=== PATIENT | female | born 1975 | race Caucasian/White ===

== ENCOUNTER 2018-05-22 07:05 | Emergency (ER) | payer MEDICAID ==
[~2018-05-22] VITALS: Ht 175.3 cm; Wt 145.2 kg
[2018-05-22] MEDS ORDERED: VENTOLIN HFA18 GM (07:17)
[2018-05-22] MEDS ORDERED: HYDROCHLOROTHIA25 MG PO ×2 (07:17→10:18)
--- NOTE | 2018-05-23 18:39 | EKG ---
[facility] [address] [place] [address] Signed Normal sinus rhythm Normal ECG No previous ECGs available Confirmed by KASHIF REHMAN MD ([id number]) on 05/23/2018 6:39:08 PM Electronically Signed By: KASHIF REHMAN MD 05/23/18 1839 PATIENT NAME: KALLI GUZMAN Electrocardiogram DATE OF : 73 PHYSICIAN: KASHIF REHMAN MD REPORT #: [id number] REPORT IS CONFIDENTIAL AND NOT TO BE RELEASED WITHOUT AUTHORIZATION
--- NOTE | 2018-05-23 18:39 | EKG ---
[facility] [address] [place], [place] [address] Signed Normal sinus rhythm Normal ECG When compared with ECG of 22-MAY-2018 07:08, (Unconfirmed) No significant change was found Confirmed by KASHIF REHMAN MD ([id number]) on 05/23/2018 6:39:15 PM Electronically Signed By: KASHIF REHMAN MD 05/23/18 1839 PATIENT NAME: YAW GUZMANMONCHO LAGUNASE Electrocardiogram DATE OF : 73 PHYSICIAN: KASHIF REHMAN MD REPORT #: [id number] REPORT IS CONFIDENTIAL AND NOT TO BE RELEASED WITHOUT AUTHORIZATION
== END 2018-05-22 10:31 | disposition home or self-care (01) ==
LOC: ED 07:05
DX: K21.9 Gastro-esophageal reflux disease without esophagitis (principal); I10 Essential (primary) hypertension; F17.200 Nicotine dependence, unspecified, uncomplicated; Z88.0 Allergy status to penicillin; Z79.899 Other long term (current) drug therapy
CPT/HCPCS: 71046; 80053; 84484; 85025; 93005; 93010; 99285

== ENCOUNTER 2019-07-12 11:56 | Emergency (ER) | payer SELFPAY ==
[~2019-07-12] VITALS: Ht 175.3 cm; Wt 129.7 kg
[~2019-07-12 11:56] MED LIST: HYDROCHLOROTHIA25 MG PO; VENTOLIN HFA18 GM
--- OUTSIDE RECORDS SUMMARY | 2019-07-12 12:00 | XMS ---
PreManage Notification: KALLI GUZMAN [employer] Events No recent Security Events currently on file CRITERIA MET - Group Notification - [facility] - Has Care Guidelines CARE PROVIDERS HAKEEM JOHNSON [facility] Current PHONE: Unknown Care Guidelines exist for the following facilities: [facility] ( 11/15/2017 ) Care History Medical/Surgical 12/20/2018 [facility] - PATIENT CONTACT NUMBER IS NO LONGER IN SERVICE. - CHW IS UNABLE TO CONTACT PATIENT. PLEASE CONTACT CHW IF PATIENT IS SEEN IN THE ED [phone]. 05/23/2018 [facility] - CHW RECEIVED ED PHYSICIAN CONSULT- TO CONTACT PATIENT FOR INSURANCE/PCP HELP. - CHW CALLED AND LEFT PATIENT A VOICEMAIL. - CHW SENT NO PCP LETTER TO PATIENT. 05/16/2015 [facility] Asthma/ Hep C/ Hypertension/Tobacco Use Disorder E.D. VISIT COUNT (12 MO.) 3 [facility] [place] TOTAL 3 NOTE: Visits indicate total known visits. ED/UCC VISIT TRACKING (12 MO.) 07/12/2019 11:57 [facility] [place] TYPE: Emergency COMPLAINT: - TOOTH PAIN 12/16/2018 16:44 [facility] [place] TYPE: Emergency COMPLAINT: - COUGHING BLOOD DIAGNOSES: - Essential (primary) hypertension - Allergy status to narcotic agent status - Other penitentiary (current) drug therapy - Acute upper respiratory infection, unspecified - Allergy status to penicillin - Nicotine dependence, unspecified, uncomplicated - Cough 07/25/2018 14:[address] [facility] [place] TYPE: Emergency COMPLAINT: - BACK PAIN/NO INJURY/MSE TO CLINIC DIAGNOSES: - Low back pain INPATIENT VISIT TRACKING (12 MO.) No inpatient visits to display in this time frame [email or web address]
[2019-07-12] MEDS ORDERED: NORCO 7.5-3251 EACH PO (12:37)
[2019-07-12] MEDS ORDERED: CLEOCIN HCL300 MG PO (12:37)
== END 2019-07-12 12:55 | disposition home or self-care (01) ==
LOC: ED 11:56
DX: K04.7 Periapical abscess without sinus (principal); I10 Essential (primary) hypertension; F17.200 Nicotine dependence, unspecified, uncomplicated; Z88.0 Allergy status to penicillin; Z88.5 Allergy status to narcotic agent; Z79.899 Other long term (current) drug therapy
CPT/HCPCS: 99282; A9270

== ENCOUNTER 2019-08-20 22:33 | Emergency (ER) | payer SELFPAY ==
[~2019-08-20] VITALS: Ht 175.3 cm; Wt 129.7 kg
[~2019-08-20 22:33] MED LIST changes: +CLEOCIN HCL300 MG PO; +NORCO 7.5-3251 EACH PO
--- OUTSIDE RECORDS SUMMARY | 2019-08-20 22:36 | XMS ---
PreManage Notification: KALLI GUZMAN Security [employer] Events No recent Security Events currently on file CRITERIA MET - Group Notification - [facility] - Has Care Guidelines CARE PROVIDERS HAKEEM JOHNSON [facility] Current PHONE: Unknown Care Guidelines exist for the following facilities: [facility] ( 11/15/2017 ) Care History Medical/Surgical 12/20/2018 [facility] - PATIENT CONTACT NUMBER IS NO LONGER IN SERVICE. - CHW IS UNABLE TO CONTACT PATIENT. PLEASE CONTACT CHW IF PATIENT IS SEEN IN THE ED [phone]. 05/23/2018 [facility] - CHW RECEIVED ED PHYSICIAN CONSULT- TO CONTACT PATIENT FOR INSURANCE/PCP HELP. - CHW CALLED AND LEFT PATIENT A VOICEMAIL. - CHW SENT NO PCP LETTER TO PATIENT. 05/16/2015 [facility] [place] Asthma/ Hep C/ Hypertension/Tobacco Use Disorder E.D. VISIT COUNT (12 MO.) 3 [place] [place] TOTAL 3 NOTE: Visits indicate total known visits. ED/UCC VISIT TRACKING (12 MO.) 08/20/2019 22:34 [facility] [place] TYPE: Emergency COMPLAINT: - DENTAL PROBLEM/COUGH 07/12/2019 11:57 [facility] [place] TYPE: Emergency COMPLAINT: - TOOTH PAIN DIAGNOSES: - Periapical abscess without sinus - Other custodial (current) drug therapy - Nicotine dependence, unspecified, uncomplicated - Allergy status to penicillin - Other specified disorders of teeth and supporting structures - Essential (primary) hypertension - Allergy status to narcotic agent status 12/16/2018 16:44 [facility] [place] TYPE: Emergency COMPLAINT: - COUGHING BLOOD DIAGNOSES: - Essential (primary) hypertension - Allergy status to narcotic agent status - Other buttermaker helper (current) drug therapy - Acute upper respiratory infection, unspecified - Allergy status to penicillin - Nicotine dependence, unspecified, uncomplicated - Cough INPATIENT VISIT TRACKING (12 MO.) No inpatient visits to display in this time frame [email or web address]
[2019-08-21] MEDS ORDERED: CLINDAMYCIN HC300 MG PO (00:12)
== END 2019-08-21 00:27 | disposition home or self-care (01) ==
LOC: ED 22:33
DX: K02.9 Dental caries, unspecified (principal); J20.9 Acute bronchitis, unspecified; I10 Essential (primary) hypertension; F17.200 Nicotine dependence, unspecified, uncomplicated; Z88.0 Allergy status to penicillin; Z88.5 Allergy status to narcotic agent; Z79.899 Other long term (current) drug therapy
CPT/HCPCS: 99282